=== PATIENT | male | born 1945 | race Caucasian/White ===

== ENCOUNTER → 2016-08-28 | Outpatient (REF) | payer BC ==
[2016-08-28 18:34] LABS: ALBUMIN 4.7 g/dL (3.4-5.0); ANION GAP 19.8 MEQ/L (3-15); CALCULATED IONIZED CALCIUM 4.1 mg/dL (3.8-4.6); TOTAL PROTEIN 7.8 g/dL (6.4-8.5)
== END ==
LOC: LAB 16:21
PROVIDERS: ATTEND Family Medicine
DX: I10 Essential (primary) hypertension (principal)
CPT/HCPCS: 80053; 80061